=== PATIENT | male | born 1995 | race Two or more races ===

== ENCOUNTER 2018-08-18 23:04 | Emergency (ER) | payer OTHER ==
[~2018-08-18] VITALS: Ht 177.8 cm; Wt 61.2 kg
--- NOTE | 2018-08-18 23:14 | NUR ---
Patient to ER bed 2 to gown for evaluation. Side rails up.
[2018-08-18 23:15] VITALS: BP_SYST 134
--- NOTE | 2018-08-18 23:18 | NUR ---
Pt c/o cough for 3 days. Pt appears diaphoretic, stating he has chills, with sore throat. Per pt, he takes Robitussin for cough with no relief. Pt sleeps during day but has not been able to sleep at night. No other injuries/complaints per patient or noted. Father at bedside.
--- NOTE | 2018-08-18 23:19 | NUR ---
ER Dr. Cain at bedside examining patient.
[2018-08-18 23:31] VITALS: BP_SYST 134
--- NOTE | 2018-08-18 23:33 | NUR ---
Patient given written and verbal discharge instructions and verbalizes understanding. ER MD discussed with patient the results and treatment provided. Patient in stable condition. ID arm band removed. Rx of Azithromycin and Promethazine given. Patient educated on pain management and to follow up with PMD. Pain Scale 0. Opportunity for questions provided and answered. Medication side effect fact sheet provided.
== END 2018-08-18 23:31 | disposition home or self-care (01) ==
LOC: SED 23:04
DX: J02.8 Acute pharyngitis due to other specified organisms (principal); B96.89 Other specified bacterial agents as the cause of diseases classified elsewhere; R03.0 Elevated blood-pressure reading, without diagnosis of hypertension
CPT/HCPCS: 99283